=== PATIENT | male | born 1960 | race Caucasian/White ===

== ENCOUNTER 2016-09-20 15:26 | Emergency (ER) | payer OTHER, MEDICAID ==
[2016-09-20 15:34] VITALS: RESP 18; O2SAT 96
--- NOTE | 2016-09-20 16:23 | EDPHY ---
H & P Stated Complaint: l INDEX FINGER LAC W/ KITCHEN KNIFE Source: Patient Exam Limitations: No limitations - Personal History Current Tetanus/Diphtheria Vaccine: Yes Current Tetanus Diphtheria and Acellular Pertussis (TDAP): Yes Tetanus Vaccine Date: /2011 - Medical/Surgical History Hx Asthma: No Hx Chronic Respiratory Disease: No Hx Diabetes: No Hx Cardiac Disease: No Hx Renal Disease: No Hx Cirrhosis: No Hx Alcoholism: Yes Hx HIV/AIDS: Yes Hx Splenectomy or Spleen Trauma: No Other PMH: PSH: R HAND; ABD; T&A. PMH: HIV - Social History Smoking Status: Former smoker HPI/ROS: CHIEF COMPLAINT: Finger tip laceration HISTORY OF PRESENT ILLNESS: cooking when he accidentally cut the left index finger tip within the past 2 hours. Moderate bleeding noted. Distal lateral to the nail bed. Some numbness of the area. No motor changes. No pulsatile bleeding that he describes. No injuries elsewhere. Tetanus was last updated 5 years ago. mild pain that is worse with palpation or movement. Improved with rest. Does not radiate. No other associated complaints or modifying factors. No bleeding disorders or anticoagulants PRIOR ORTHO INJURIES: hand laceration remotely 2011 ESTABLISHED ORTHOPEDIST: none REVIEW OF SYSTEMS: Ten systems reviewed and are negative unless otherwise noted in the HPI EXAMINATION General Appearance: Alert, no distress Head: normocephalic, atraumatic Eyes: Pupils equal and round, no conjunctival pallor or injection Neck: Normal inspection Respiratory: No dyspnea or retractions. No distress Cardiovascular: Pulses normal throughout. Brisk cap refill in all 10 fingers Neurological: A&O, sensory symmetric, strength symmetric Skin: Warm and dry. Laceration as noted below. Extremities: Tenderness to palpation of the left index finger tip. Full flexion-extension noted. Sensory intact with some paresthesias to the finger tip. Range of motion is fully intact. Laceration is approximately 1 cm over the lateral aspect of the left index finger. No involvement of the nail and nail bed. Psychiatric: Mood and affect normal MDM: 4:15 p.m. Finger tip laceration. Tetanus status is up-to-date. No involvement of the nail bed. The wound has been blocked at this time. We will irrigate and close the wound. 4:50 p.m. finger tip laceration that has been closed without complication. Good approximation. Wound care as discussed. Return to the ER in 7-10 days for suture removal. Return sooner for signs of infection as discussed. Neurovascular intact post procedure PROCEDURE: Digital Block Consent: Verbal Location: Left index finger Anesthesia: Lidocaine 1% plain, 0.25% Marcaine plain, 5mL Description: base of the left index finger was cleaned with chlorhexidine. 5 mL of anesthesia as listed above or infused on bilateral aspects of the proximal phalanx. There was good anesthesia. No hematoma. No complications and he tolerated the procedure well. Complications: None PROCEDURE: Laceration repair Consent: Verbal Location: Left index finger Length of repair: 1.25 cm Complexity: simple Layer involvement: single Anesthesia: digital block as above Irrigation: Extensive Debridement: none Procedure description: after good anesthesia and irrigation the wound was explored. No foreign body noted. There is a curvilinear 1.25 cm laceration. Good wound approximation with 4, simple interrupted sutures. Hemostasis noted. No complications. Tolerated well. Suture/Staple material: 5-0 Ethilon Wound care: Routine as discussed Suture/Staple removal: 7-10 Days ED Precautions: Worsening pain. Erythema, edema, cyanosis, pallor, paresthesia or anesthesia. SUPERVISION:This patient was independently evaluated without the aide of supervising physician. (Duncan Antonio) Constitutional: Initial Vital Signs Temperature (C) 36.8 C 09/20/16 15:31 Heart Rate 74 09/20/16 15:31 Respiratory Rate 18 09/20/16 15:31 Blood Pressure 114/75 09/20/16 15:31 O2 Sat (%) 96 09/20/16 15:31 O2 Delivery Mode Room Air Allergies/Adverse Reactions: Penicillins Allergy (Verified 09/20/16 15:30) OPIATES Allergy (Uncoded 11/02/10 17:42) Home Medications: Medication Instructions Recorded EPIVIR 11/02/10 VIRAMUNE 11/02/10 Viriad 11/02/10 Medical Decision Making ED Course/Re-evaluation: I did not see this patient while he was in the emergency department. However his care was discussed with the PA while the patient was in the department. I agree with treatment plan and management (Erwin Walsh) Departure - Departure Disposition: Home, Routine, Self-Care Clinical Impression: Injury of tip of finger of left hand, Laceration Condition: Good Instructions: Care For Your Stitches (ED), Laceration (ED) Additional Instructions: Follow-up with primary care physician for ongoing care if needed. Return to ER for worsening pain, signs of infection as discussed. Also return here in 7-10 days for suture removal if needed and unable to see primary care Referrals: Brooklyn Cortes MD [Primary Care Provider] - As per Instructions
[2016-09-20 17:06] VITALS: BP 111/72; PULSE 62; TEMP 98.4
== END 2016-09-20 17:25 | disposition home or self-care (01) ==
PROC: 0HQGXZZ Repair Left Hand Skin, External Approach (ICD-10-PCS; principal; 2016-09-20)
DX: S61.211A Laceration without foreign body of left index finger without damage to nail, initial encounter (principal); B20 Human immunodeficiency virus [HIV] disease; Z87.891 Personal history of nicotine dependence; W26.9XXA Contact with unspecified sharp object(s), initial encounter; Y93.G3 Activity, cooking and baking

== ENCOUNTER 2018-04-12 14:16 | Emergency (ER) | payer OTHER, MEDICAID ==
[2018-04-12 16:39] LABS: PLATELET COUNT 117 10^3/uL (150-400)
--- NOTE | 2018-04-12 16:39 | EDPHY ---
H & P Smoking Status: Former smoker Time Seen by Provider: 04/12/18 15:06 HPI/ROS: CHIEF COMPLAINT: Headache, rash HISTORY OF PRESENT ILLNESS: 57-year-old male presents to the emergency department with a headache and diffuse rash. Symptoms began 36 hr ago. He states that he initially noted some sores in his mouth and then over the last several hours he has noticed more of a pruritic rash over his trunk, abdomen and upper back especially. He describes it is very itchy but then when they open up they are more painful. No known fevers or chills. No recent travel. No known ill contacts. He states he has never had varicella in the past and his friend thought that this could be varicella. He has never had the varicella vaccine. He has a history of HIV positive however does not have a detectable viral load. He is followed by Dr. Brooklyn Cortes. He denies pain in his chest or difficulty breathing. No cough. No rhinorrhea. No prodrome will illness. No vomiting or diarrhea. REVIEW OF SYSTEMS: Constitutional: No fever, no chills. Eyes: No double or blurry vision. ENT: No sore throat. Respiratory: No cough, no shortness of breath. Cardiac: No chest pain. Gastrointestinal: No abdominal pain, vomiting or diarrhea. Genitourinary: No dysuria. Musculoskeletal: No neck or back pain. Skin: Rash as above Neurological: headache. (Bharati Cheng) Past Medical/Surgical History: HIV positive, tonsillectomy (Bharati Cheng) Social History: Single (Bharati Cheng) Physical Exam: General Appearance: Alert, no distress. Eyes: Pupils equal and round. Extraocular motions are all intact. ENT: Mouth: Mucous membranes moist. Ulcerative lesion noted to the gingival mucosa both on the right upper and right lower gum. No posterior pharyngeal injection noted. No exudate. Respiratory: No wheezing, rhonchi, or rales, lungs are clear to auscultation. Cardiovascular: Regular rate and rhythm. Gastrointestinal: Abdomen is soft and nontender, no masses, no rebound or guarding, bowel sounds normal. Neurological: Alert and oriented x 3, cranial nerves II through XII grossly intact Skin: Skin is warm and dry. He has diffuse erythematous papular rash with some appearing more vesicular to his face, scalp, he chest and abdomen and upper back.. No pustules. Blanches to the touch. Musculoskeletal: Nontender to palpate along the cervical, thoracic or lumbar spine. Neck is supple. Extremities: Full range of motion and no peripheral edema. Psychiatric: Patient is oriented X 3, there is no agitation. (Bharati Cheng) Constitutional: Initial Vital Signs Temperature (C) 37.6 C 04/12/18 14:23 Heart Rate 108 H 04/12/18 14:23 Respiratory Rate 18 04/12/18 14:23 Blood Pressure 135/85 H 04/12/18 14:23 O2 Sat (%) 94 04/12/18 14:23 O2 Delivery Mode Room Air Allergies/Adverse Reactions: Penicillins Allergy (Verified 04/12/18 14:21) OPIATES Allergy (Uncoded 11/02/10 17:42) Home Medications: Medication Instructions Recorded Nevirapine 04/12/18 Tenofovir Alafenamide Fumarate 04/12/18 Valacyclovir HCl [Valtrex] 1,000 mg PO TID #21 tab 04/12/18 Vemlidy 04/12/18 Medical Decision Making ED Course/Re-evaluation: The case was discussed with Dr. Eric Louise, secondary supervising physician, who also evaluated the patient. He recommended consulting Infectious Disease. Dr. Marsha Moffett who was in the emergency department evaluated the patient as well and feels that his rash is likely varicella in nature. Laboratory studies have been ordered. Swab of the rash that was opened by Dr. Marsha Moffett was sent to the lab for evaluation. Patient will be started on valacyclovir 1000 mg three times daily for 1 week. He will follow up with his infectious disease doctor this week to recheck. The patient feels comfortable being discharged home. He was instructed to return to the emergency department if he had any change in symptoms or felt worse. (Bharati Cheng) Differential Diagnosis: Including but not limited to varicella, Pneumocystis, zoster, cellulitis, meningitis, sepsis (Bharati Cheng) Other Provider: 1530: I examined this patient at the request of BRIAN Malik. On exam he has a scattered, papular rash that is primarily in the trunk. He is also complaining of a headache associated with the rash. He denies starting or changing medications. He denies exposure to new detergents or soaps. I recommend consulting with Dr. Moffett, infectious disease, to further evaluate this patient. (Eric Louise) - Data Points Laboratory Results: Laboratory Results 04/12/18 15:28 04/12/18 15:28 04/12/18 04/12/18 04/12/18 15:28 15:28 15:28 WBC 3.17 10^3/uL L 10^3/uL (3.80-9.50) RBC 4.51 10^6/uL 10^6/uL (4.40-6.38) Hgb 15.8 g/dL g/dL (13.7-17.5) Hct 43.4 % % (40.0-51.0) MCV 96.2 fL fL (81.5-99.8) MCH 35.0 pg H pg (27.9-34.1) MCHC 36.4 g/dL g/dL (32.4-36.7) RDW 11.9 % % (11.5-15.2) Plt Count 117 10^3/uL L 10^3/uL (150-400) MPV 9.6 fL fL (8.7-11.7) Neut % (Auto) 50.2 % % (39.3-74.2) Lymph % (Auto) 34.4 % % (15.0-45.0) Granite % (Auto) 13.9 % H % (4.5-13.0) Eos % (Auto) 0.3 % L % (0.6-7.6) Baso % (Auto) 0.9 % % (0.3-1.7) Nucleat RBC Rel Count 0.0 % % (0.0-0.2) Absolute Neuts (auto) 1.59 10^3/uL L 10^3/uL (1.70-6.50) Absolute Lymphs (auto) 1.09 10^3/uL 10^3/uL (1.00-3.00) Absolute Monos (auto) 0.44 10^3/uL 10^3/uL (0.30-0.80) Absolute Eos (auto) 0.01 10^3/uL L 10^3/uL (0.03-0.40) Absolute Basos (auto) 0.03 10^3/uL 10^3/uL (0.02-0.10) Absolute Nucleated RBC 0.00 10^3/uL 10^3/uL (0-0.01) Immature Gran % 0.3 % % (0.0-1.1) Immature Gran # 0.01 10^3/uL 10^3/uL (0.00-0.10) Platelet Estimate Pending Sodium 141 mEq/L mEq/L (135-145) Potassium 4.2 mEq/L mEq/L (3.3-5.0) Chloride 105 mEq/L mEq/L (97-110) Carbon Dioxide 26 mEq/l mEq/l (22-31) Anion Gap 10 mEq/L mEq/L (8-16) BUN 12 mg/dL mg/dL (7-23) Creatinine 1.1 mg/dL mg/dL (0.7-1.3) Estimated GFR > 60 Glucose 82 mg/dL mg/dL (70-100) Calcium 9.3 mg/dL mg/dL (8.5-10.4) Total Bilirubin 0.3 mg/dL mg/dL (0.1-1.4) AST 56 IU/L IU/L (17-59) ALT 41 IU/L IU/L (21-72) Alkaline Phosphatase 91 IU/L IU/L (38-126) Total Protein 7.0 g/dL g/dL (6.3-8.2) Albumin 4.5 g/dL g/dL (3.5-5.0) Syphilis IgG/IgM Ab Pending VZV IgG Antibody VZV IgG Ab Index VZV IgG,IgM Antibody 04/12/18 15:28 WBC RBC Hgb Hct MCV MCH MCHC RDW Plt Count MPV Neut % (Auto) Lymph % (Auto) Granite % (Auto) Eos % (Auto) Baso % (Auto) Nucleat RBC Rel Count Absolute Neuts (auto) Absolute Lymphs (auto) Absolute Monos (auto) Absolute Eos (auto) Absolute Basos (auto) Absolute Nucleated RBC Immature Gran % Immature Gran # Platelet Estimate Sodium Potassium Chloride Carbon Dioxide Anion Gap BUN Creatinine Estimated GFR Glucose Calcium Total Bilirubin AST ALT Alkaline Phosphatase Total Protein Albumin Syphilis IgG/IgM Ab VZV IgG Antibody Pending VZV IgG Ab Index Pending VZV IgG,IgM Antibody Pending Departure - Departure Disposition: Home, Routine, Self-Care Clinical Impression: Pruritic rash Headache Qualifiers: Headache type: unspecified Headache chronicity pattern: acute headache Intractability: not intractable Qualified Code(s): R51 - Headache Condition: Good Instructions: Acute Headache (ED), Acute Rash (ED) Additional Instructions: Benadryl 50 mg every 6 hr as needed for symptoms of itching. You may also use a meal bath as discussed with Dr. Marsha Moffett. Valtrex 1000 mg three times daily for 1 week. Please return to the emergency department if you develop fever, worsening headache, vomiting, altered mental status, or if you feel worse in any way. Referrals: Brooklyn Cortes MD [Primary Care Provider] - 2-3 days without fail Prescriptions: Valacyclovir HCl [Valtrex] 1,000 mg PO TID #21 tab
[2018-04-12 17:05] VITALS: BP 103/83
--- NOTE | 2018-04-12 17:37 | GCON ---
[f rep st] CONSULTATION INFECTIOUS DISEASE CONSULTATION REFERRING PHYSICIAN: BRIAN De Leon REASON FOR CONSULTATION: Fever and rash. HISTORY OF PRESENT ILLNESS: This is a 57-year-old male, well-known to the [facility] with longstanding HIV x30 years that is well controlled. The patient has a known CD4 cell count of 655, and last viral load in March was undetectable, which has been longstanding. He is maintained on viramune, Epivir , and TAF. The patient was in his usual state of health until the last couple of days, when he developed malaise, headache, and a rash. This rash is diffuse. He describes first noticing some ulcerations in his mouth, but then he developed ulcerations over his trunk, arms, and legs. He has a mild associated headache with no respiratory symptoms or sore throat. He has no neck stiffness or light sensitivity. The patient does describe some eye irritation, which he attributes to current smoke in the [place] area. Of note, patient does not recall having chickenpox previously and recently his primary care doctor has measured his varicella titers in October and in March of 2018, which have been negative. He has not received the varicella vaccination as of yet. The patient denies any sick contacts. He does not eat out and denies contact with children. He was last sexually active 3 months ago, has no genital symptoms other than the rash progressing in that area in the suprapubic region. He denies any GI symptoms. PAST MEDICAL HISTORY: HIV diagnosed in 1984, hepatitis A, hepatitis B, and vitamin B12 deficiency. PAST SURGICAL HISTORY: No past surgical history. SOCIAL HISTORY: The patient is a former tobacco user. He exercises. FAMILY HISTORY: Reviewed and noncontributory. VACCINATIONS: He is up-to-date on vaccinations. He has not received the varicella vaccination, although he has been prescribed a prescription. ALLERGIES: Penicillin and tetracyclines. MEDICATIONS: EpiPen for anaphylaxis, Nevirapine 200 mg daily, Viread 300 mg daily, Vemlidy 25 mg daily. REVIEW OF SYSTEMS: A complete 10-point review of systems was performed and is negative except as mentioned in HPI. PHYSICAL EXAM: VITAL SIGNS: Blood pressure 135/85, heart rate is 108, respiratory rate 18, saturation 94% on room air, temperature 37.6. GENERAL: This is a very pleasant, upbeat male sitting in bed. He is mildly diaphoretic. HEENT: He has 2 ulcerations on his inner gumline and upper gumline. He has mild conjunctival suffusion. His extraocular muscles were intact. NECK: His neck was supple. He was able to touch his chin to his chest. No meningismus CARDIOVASCULAR: Mildly tachycardic. No murmur. CHEST: Clear to auscultation bilaterally. ABDOMEN: Soft, nontender. His liver and spleen were nonpalpable. EXTREMITIES: No joint swelling. SKIN: Patient had a diffuse maculopapular eruption with some lesions having a vesicular appearance. As mentioned in HPI, the rash was highly pruritic. NEURO: Moving all 4 extremities equally, fluent speech, grossly cranial nerve normal limits LABORATORY: VZV IgG and IgM were sent from the ER. Syphilis serologies were sent and one of the lesions was personally unroofed by me and swab was taken for VZV PCR. Creatinine in the emergency room was 1.1 and LFTs were within normal limits. CBC is pending. IMPRESSION: 57-year-old male with well-controlled human immunodeficiency virus with a high CD4 and hepatitis B, who presents to the emergency room with a febrile illness with headache and highly pruritic rash with several spots that do appear somewhat vesicular. No clear signs of meningismus, O2 sat is normal and minimal respiratory symptoms. Although this seems somewhat ironic due to recent VZV serologic testing, but I do feel there is some concern for chickenpox. Also, other possibilities discussed with patient would be a nonspecific viral illness with viral eruption and/or allergic reaction to an unknown food. Notably, patient has not started any new recent medicines. Would recommend treatment for chickenpox with Valtrex 1 g p.o. t.i.d. x2 weeks with followup in ID Clinic to assess follow-up on testing and discontinue the therapy if this testing is negative. Recommended that patient use oatmeal baths to relieve itching as well as Benadryl. Thank you for this consultation. We will follow up in ID clinic. /[id number]/MODL MTDD
== END 2018-04-12 17:06 | disposition home or self-care (01) ==
DX: R51 Headache (principal); R21 Rash and other nonspecific skin eruption; Z21 Asymptomatic human immunodeficiency virus [HIV] infection status
CPT/HCPCS: 86644-90; 86645-90; 86664-90; 86665-90; 86787-90; 87798-90

== ENCOUNTER 2018-04-14 10:19 | Inpatient (IN) | payer OTHER, MEDICAID ==
--- NOTE | 2018-04-14 10:54 | EDPHY ---
HPI/HX/ROS/PE/MDM Narrative: CHIEF COMPLAINT: Rash, positive VZV, HIV positive patient, HISTORY OF PRESENT ILLNESS: This is a 57-year-old male, HIV positive with viral load less than 1 and normal T cells, who was seen in the emergency department 4 days ago for rash. At that time the patient had a vesicle lanced and the VZV DNA is positive. Patient had been started on valacyclovir at the time of his emergency department visit, but his rash has been worsening. Patient reports pain with swallowing and does state that he had discomfort in his throat an oral lesions when he was seen previously. Patient is now also complaining of a headache, some neck stiffness, some shortness of breath, no cough, and significantly worse rash. Dr. Nicholson shows the patient's primary infectious disease physician. She did contact me prior to the patient's arrival and recommended that the patient be started on IV acyclovir. Patient was evaluated by Dr. Best immediately on arrival to the emergency department. Laboratory evaluation was started by Dr. Cortes and IV acyclovir ordered. No fever, chills, chest pain, shortness of breath, palpitations, vomiting, diarrhea, urinary complaints, headache, lightheadedness. REVIEW OF SYSTEMS: A comprehensive 10 system review of systems was reviewed and is otherwise negative aside from elements mentioned in the history of present illness. PAST MEDICAL HISTORY: HIV positive, varicella lesions, SOCIAL HISTORY: Former smoker. Single. VITAL SIGNS Reviewed by me. Complaining of pain in his throat. GENERAL: Well-developed, well-nourished, no increased respiratory effort.. HEENT: Atraumatic. Eyes: No icterus, no injection. Mouth: moist mucous membranes. Patient has vesicular lesions on the gumline as well as on the posterior pharynx. Neck: supple, no meningismus. Negative Kernig's. Negative Brudzinski's. LUNGS: Clear to auscultation bilaterally, no wheezes, rhonchi or rales. CARDIAC: Regular rate and rhythm, no rubs, murmurs or gallops. ABDOMEN: Soft, nontender, nondistended, bowel sounds normal. BACK: No CVA tenderness. EXTREMITIES: No trauma. No edema. Range of motion is normal throughout. NEURO: Alert and oriented, grossly nonfocal. Not encephalopathic. SKIN: Warm and dry, vesicular rash extending from the head to the legs. Most confluent on the trunk. Some of the lesions are crusted. PSYCHIATRIC: Normal mentation, no agitation. ED Course: 57-year-old gentleman HIV positive now presenting with a primary varicella infection. Patient's symptoms are also suggestive of viral meningitis verses viral encephalitis. Chest x-ray was obtained to rule out pneumonia. Discussed potential lumbar puncture with Infectious Disease service. As is will not change the patient is treatment, and he is not encephalopathic, plan at this point is to continue with IV acyclovir. Patient was also given Magic mouthwash to help with the oral lesions. Chest x-ray with no acute findings. Spoke with hospitalist service. Dr. Trevizo accepts admission. MDM: Differential diagnoses for the patient's symptom complex was considered including but not limited to varicella infection, shingles, disseminated shingles, varicella pneumonia, encephalitis, meningitis. - Data Points Imaging: I viewed and interpreted images myself Laboratory Results: Laboratory Results 04/14/18 10:55 04/14/18 10:55 Medications Given: Discontinued Medications Calcium/Vitamin D (Calcium Carb W/Vit D) 500 mg PO DAILY JOSÉ ANTONIO Stop: 10/12/18 08:59 Last Admin: 04/16/18 09:55 Dose: 500 mg Acyclovir 750 mg/ Dextrose 265 mls @ 265 mls/hr IV Q8H JOSÉ ANTONIO Stop: 05/14/18 12:29 Last Admin: 04/16/18 11:45 Dose: Not Given Sodium Chloride (Ns) 1,000 mls @ 0 mls/hr IV ONCE ONE; Wide Open PRN Reason: Protocol Stop: 04/14/18 12:35 Last Admin: 04/14/18 12:46 Dose: 1,000 mls Sodium Chloride (Ns) 1,000 mls @ 100 mls/hr IV CONT JOSÉ ANTONIO Stop: 10/11/18 14:29 Last Admin: 04/15/18 13:57 Dose: 1,000 mls Sodium Chloride (Ns) 500 mls @ 0 mls/hr IV ONCE ONE PRN Reason: Wide Open Stop: 04/15/18 15:44 Last Admin: 04/15/18 17:12 Dose: 500 mls Sodium Chloride (Ns) 500 mls @ 166.667 mls/hr IV Q8H JOSÉ ANTONIO Stop: 10/12/18 19:29 Last Admin: 04/16/18 11:45 Dose: Not Given Lidocaine/Diphenhydramine/Alumin/Mg (Maalox/Diphenhydramine/Lido) 10 ml PO ONCE ONE Stop: 04/14/18 12:35 Last Admin: 04/14/18 13:59 Dose: 10 ml Miscellaneous Medication (Lamivudine [Lamivudine]) 300 mg PO DAILY ON LICENSE OF [facility] Stop: 10/12/18 08:59 Last Admin: 04/16/18 09:56 Dose: 300 mg Miscellaneous Medication (Nevirapine) 400 mg PO DAILY JOSÉ ANTONIO Stop: 10/12/18 08:59 Last Admin: 04/16/18 09:55 Dose: 400 mg Tenofovir Disoproxil Fumarate (Viread) 300 mg PO DAILY ON LICENSE OF [facility] Stop: 10/12/18 08:59 Last Admin: 04/16/18 09:56 Dose: 300 mg General Time Seen by Provider: 04/14/18 10:34 Initial Vital Signs: Initial Vital Signs Temperature (C) 37 C 04/14/18 10:23 Heart Rate 90 04/14/18 10:23 Respiratory Rate 18 04/14/18 10:23 Blood Pressure 105/69 04/14/18 10:23 O2 Sat (%) 97 04/14/18 10:23 O2 Delivery Mode Room Air Allergies/Adverse Reactions: Penicillins Allergy (Verified 04/14/18 11:48) Anaphylaxis bee stings Allergy (Uncoded 04/14/18 11:48) OPIATES Allergy (Uncoded 04/14/18 11:48) Dyspnea/Itching Home Medications: Medication Instructions Recorded Nevirapine [Viramune 200 mg (*)] 400 mg PO DAILY 04/12/18 Acetaminophen [Tylenol 325mg (*)] 325 mg PO Q6HRS PRN 04/14/18 Azithromycin 250 mg PO DAILY 04/14/18 Calcium Carb W/Vit D [Calcium Carb 500 mg PO DAILY 04/14/18 W/Vit D 500/200 (*)] Multivitamins [Multivitamin (*)] 1 each PO DAILY 04/14/18 Tenofovir Disoproxil Fumarate 300 mg PO DAILY 04/14/18 [Viread 300 MG (*)] diphenhydrAMINE [Benadryl 25 MG 25 mg PO DAILY PRN 04/14/18 (*)] lamiVUDine [Lamivudine] 300 mg PO DAILY 04/14/18 Departure - Departure Disposition: [facility] Inpatient Acute Clinical Impression: Rash Varicella Qualifiers: Varicella complications: unspecified complication Qualified Code(s): B01.89 - Other varicella complications Condition: Fair
[2018-04-14 11:13] LABS: PLATELET COUNT 112 10^3/uL (150-400)
--- NOTE | 2018-04-14 12:14 | GCON ---
[f rep st] CONSULTATION MTDD
--- NOTE | 2018-04-14 12:24 | GCON ---
[f rep st] CONSULTATION INFECTIOUS DISEASE CONSULT. REFERRING PHYSICIAN: Micah Perez MD REASON FOR CONSULT: To assist in the management of my primary care patient, who is being admitted for primary varicella. HISTORY OF PRESENT ILLNESS: The patient is a 57-year-old male whose previous medical history is notable for the followin. Longstanding HIV: The patient was diagnosed in the mid 80s. He has been quite stable on antiretroviral therapy. Most recent viral load was less than 1 last week, with a T-cell count of 655 in September 2017. He has had no significant HIV-related complications, per se. His antiretroviral regimen consists of nevirapine, 3TC, and TAF, which he has been on for the past several years, with the exception of TAF, which was recently changed from TDF. 2. Microscopic hematuria: The patient's urinalysis recently revealed microscopic hematuria. This was verified on 2 separate occasions. No history of nephrolithiasis. The patient will need a workup for this moving forward. 3. History of hepatitis A. 4. History of hepatitis B, with natural immunity. He does not have chronic disease. 5. Vitamin B12 deficiency. Regarding his present issues, I saw the patient in clinic literally last week, at which point we had a conversation about a negative varicella IgG that had been done in October. Because the patient was born in 1960, I had wondered at that time if this was a false negative. The plan at that time was for the patient to have a conversation with his mother to ascertain whether or not he had been exposed or had the disease, and that we would repeat the serology and vaccinate if needed. When I saw the patient last week, he told me that he had a conversation with his mother, and his mother could not recall him being exposed to chickenpox. His mother reported that his siblings had chickenpox when he was still in utero. The VZV IgG was repeated, and verified to be negative. During that visit, we had talked about having him get the primary varicella vaccine if the repeat serology was indeed negative. He was given a prescription for the primary varicella vaccine, which we did not store in our clinic. Incredibly, the patient states that he developed the onset of a vesicular rash this past Saturday. He presented to [facility] on Saturday, and 1 of the lesions was unroofed, and is positive for VZV DNA. He was seen by my colleague, Dr. Lorena Moffett, who was concerned about this entity, and empirically started him on valacyclovir 1 g p.o. t.i.d. The patient states he has taken approximately 5 doses. Of note, the patient's vital signs in the emergency room were notable for temperature of 37.6, and oxygen saturation 94% on room air. He had no evidence of hepatitis with normal transaminases; his white blood cell count was 3.1 with a platelet count of a 117 , consistent with a viral etiology. VZV serologies were also ordered, and a syphilis serology was negative. CMV and EBV serologies were also ordered. No imaging tests were obtained. The patient was discharged from the emergency room , and told to follow up with me. I called the patient this morning to check in, given the fact that the VZV DNA came back positive in 1 of the lesions; explained to the patient that he has primary varicella, and that it would be best for him to come in to the hospital for him to receive intravenous acyclovir to ensure that he does not develop complications, such as varicella pneumonia. The patient on the phone, complained of a headache, but no confusion, no visual disturbance, and no cough. I instructed him to come to [facility] Emergency Room. I saw the patient in the emergency room. He was clearly covered in VZV lesions , but did not look toxic. Again, the patient complained of a headache, but did not have any visual change whatsoever, no cough. He reported mild shortness of breath, but the patient was speaking in full sentences, and had an oxygen saturation of 97% on room air. No nausea, vomiting, sore throat, abdominal pain , dysuria, diarrhea, or changes in his bowel movements, focal weakness, or confusion. Aside from what is listed above, 10 systems are reviewed, and all are negative. PREVIOUS MEDICAL HISTORY: As outlined above. ALLERGIES: Penicillin: I forgot to ask the patient his reaction to penicillin. We will try to ascertain this moving forward, tetracyclines, reaction also unknown, and not clarified by me. He also had an unclear reaction in the past to FTC or Emtricitabine (possibly pancreatitis 14 years ago ) MEDICATIONS: 1. Valacyclovir 1 g p.o. t.i.d., of which he has taken 5 doses. 2. The patient told me that he took 1 g of azithromycin this morning (the patient had been given a Z-John to take with him on an upcoming trip to [place] for traveler's diarrhea). The patient states he took 1 g of it this morning out of concern for an "infected" mouth lesion. 3. TAF, which is Vemlidy 25 mg p.o. daily 4. nevirapine 200 mg tablet 2 tabs p.o. daily. 5. 3TC, or epivir 300 mg p.o. daily. 6. Multivitamins. SOCIAL HISTORY: The patient is single, and has no pets. He works in construction. Distant history of tobacco. No illicit substances. No recent travel in the past 6 months. FAMILY HISTORY: Noncontributory. PHYSICAL EXAM: VITAL SIGNS: T-current 37, heart rate 90, blood pressure 105/69 , 97% on room air. GENERAL: Lying on the gurney, nontoxic, no apparent distress. HEENT: Atraumatic, normocephalic. Pupils equal, round, reactive to light. Extraocular movements are intact. No conjunctival injection, icterus, or petechiae. No discharge from the nares, or sinus process tenderness. NECK: Supple, with full range of motion. No cervical or supraclavicular lymphadenopathy. Trachea is midline, with no thyromegaly, or palpable thyroid nodules. CARDIOVASCULAR: S1, S2. No rubs, gallops, or murmurs. LUNGS: No increased respiratory effort. Difficult to hear lung sounds secondary to poor quality of stethoscope, but clear to my auscultation. No rubs or wheeze, or rhonchi. ABDOMEN: Soft. No organomegaly or tenderness to palpation. EXAM : Circumcised phallus. No obvious abnormalities, other than his skin, which I will describe below. EXTREMITIES: No clubbing, cyanosis, or edema. NEUROLOGIC EXAM: He is alert and oriented x3. Sensation intact to light touch. No focal deficits at all. He is moving all 4 extremities. SKIN: The patient is covered from head-to-toe with vesicular lesions in various stages of evolution, consistent with varicella zoster. There is no evidence of secondary bacterial infection. The patient only has 1 small lesion in his lower gums in his mouth that I can see. His eyes are not injected, and otherwise look fine. RADIOGRAPHIC DATA: Chest x-ray is pending. IMPRESSION: 57-year-old male with well-controlled human immunodeficiency virus admitted with primary varicella. He does have a mild headache consistent with possible aseptic meningitis, but has nothing on exam to intimate an encephalitis, ocular involvement, pneumonia, and no evidence [facility] of varicella hepatitis. There is no evidence of secondary bacterial infection, either. At this point in time, I do not feel he needs a lumbar puncture. PLAN: 1. Discontinue valacyclovir. Start acyclovir 10 mg/kg q.8 hours intravenously. He will likely need this for a few days, at which point can transition back to oral valacyclovir. Will need to be well hydrated well on intravenous acyclovir to prevent azotemia. 2. The patient will need a chest x-ray, PA and lateral, to look for evidence of pneumonia in the setting of his complaint of shortness of breath, although his oxygen saturation is normal, and exam does not suggest pulmonary involvement. 3. He will need contact isolation, and negative airflow room. 4. He was counseled to avoid scratching to prevent secondary bacterial infection. For this, he can use calamine lotion, and Benadryl if needed. 5. If the oral lesion continues to be a problem, he can use Magic mouthwash. Instructed him to not take it anymore azithromycin for this, as there is no evidence of a bacterial secondary infection (and azithromycin would not be the right choice regardless) 6. For his HIV, continue nevirapine, 3TC, and TAF. The patient has brought his medicines from home. 7. Incidentally, the patient also continues to have microscopic hematuria of unclear etiology. While he is here, we will obtain a renal ultrasound (I will order this tomorrow), and urine cytology. Thank you very much for consulting Infectious Diseases. I will continue to follow this patient with you. /[id number]/MODL MTDD
[2018-04-14] MEDS ORDERED: MBX SOLN 30 ML BOTTLE PO ONE (12:34)
[2018-04-14] MEDS ORDERED: NS 1,000 ML IV ONE (12:34)
[2018-04-14] MEDS: ACYCLOVIR 750 MG in D5W 250 ML IV SCH ×2 (12:47→20:26)
[2018-04-14] MEDS ORDERED: diphenhydrAMINE 25 MG CAP PO PRN (14:19)
[2018-04-14] MEDS ORDERED: ACETAMINOPHEN 325 MG TAB PO PRN (14:20)
[2018-04-14] MEDS ORDERED: ONDANSETRON 4 MG/2 ML VIAL IVP PRN (14:20)
[2018-04-14] MEDS ORDERED: NS 1,000 ML IV SCH (14:30)
[2018-04-14] MEDS ORDERED: traMADol 50 MG TAB PO PRN (16:53)
[2018-04-14] MEDS ORDERED: HYDROmorphONE/DILAUDID 1 MG/ML INJ IVP PRN (16:53)
[2018-04-14] MEDS ORDERED: oxyCODONE IR 5 MG TAB PO PRN (16:53)
--- NOTE | 2018-04-14 17:27 | GHP ---
[f rep st] HISTORY AND PHYSICAL DATE OF ADMISSION: 04/14/2018 CHIEF COMPLAINT: Rash. HISTORY OF PRESENT ILLNESS: Shay is a 57-year-old, HIV-positive male, well controlled on anti-retr oviral therapy. He is known to be negative VZV IgG, and was about to get the vaccine as an outpatien t when suddenly 4 days ago he developed a vesicular rash. He was seen in the emergency room on . One of the blisters was lanced and his VZV DNA was positive. He was started empirically on darian acyclovir 1 g p.o. three times daily on Saturday, but despite this therapy his rash has worsened, now covering his entire body as well as his oral mucosa, and he can feel it all the way down the back of his throat. He has some pain with swallowing. He also has a headache which is quite significant, w ith some mild neck stiffness. There has been some shortness of breath, but no cough. He thinks his shortness of breath is due to the dryness that he feels due to the lesions in the back of his throat. Dr. Cortes saw him in the emergency room and prescribed IV acyclovir. PAST MEDICAL HISTORY: 1. HIV diagnosed in the mid 1980s. Last viral load less than 1 and his T-cells are 655. 2. Hepatitis A. 3. Hepatitis B with natural immunity. No evidence of chronic disease. 4. B12 deficiency. 5. Microscopic hematuria. MEDICATIONS: Please see computer record for full detailed list. ALLERGIES: Penicillin. SOCIAL HISTORY: Distant smoking. No alcohol. He is single, lives alone. Works in construction. L ast travel was to [facility] in January. REVIEW OF SYSTEMS: Complete review of systems obtained. Review of systems negative for constitution al, HEENT, GI, pulmonary, vascular, , hematology, endocrine, psych, except for positives as in HPI. FAMILY HISTORY: Reviewed, noncontributory to presenting complaint. PHYSICAL EXAMINATION: GENERAL: Well-developed, well-nourished male, in no acute distress. Temperat ure 37, pulse 72, blood pressure 123/65, saturating 97% on room air. HEENT: Eyes: Normal conjuncti va. Pupils react to light. ENT: Normal ears and nose. Hearing intact. Oropharynx has lesions silverio ng the gumline, above and below the teeth, some very back of the throat lesions. NECK: Trachea midl ine. No thyromegaly. CHEST: Normal respiratory effort, lungs clear to auscultation bilaterally. C ARDIOVASCULAR: Regular rhythm. No murmur. No lower extremity edema. ABDOMEN: Soft, nontender. N o hepatosplenomegaly. Skin: He has vesicular lesions over his entire body. Some of them are weepin g. MUSCULOSKELETAL: No cyanosis, clubbing. Strength 5/5 upper and lower extremities. NEUROLOGIC: Cranial nerves intact with normal sensation to light touch. PSYCHIATRIC: Alert and oriented x3. N ormal mood and affect. Normal judgment, normal memory. LABORATORY DATA: White count 6.05, hematocrit 43.0, platelets 112. Sodium 138, potassium 4.6, chlor dale 105, bicarb 24, BUN 17, creatinine 1.1. Glucose 83. LFTs are negative, Chest x-ray is negative. This case was personally discussed with Dr. Cortes regarding treatment plan. ASSESSMENT AND PLAN: 1. Primary varicella: Continue IV acyclovir per ID. Normal saline hydration while he is on acyclov ir. The patient's clinical course will be monitored per Infectious Disease. Once he shows clinical improvement, can be switched back to oral valacyclovir to complete a course post discharge. 2. Human immunodeficiency virus positive with undetectable viral load: Well controlled on a 3-drug regimen. These will be continued during this hospitalization. 3. Headache: He may have an element of varicella-zoster virus meningitis. There is no evidence of encephalitis. I do not think this would change therapy, so at this point Infectious Disease does not think we need to proceed with lumbar puncture. Continue IV acyclovir. 4. Microscopic hematuria: Dr. Cortes has ordered a renal ultrasound. CODE STATUS: Full. ADMISSION STATUS: Will admit to inpatient, as I anticipate at least 48 hours of IV therapy prior to discharge home. DVT PROPHYLAXIS: He is low risk. /[id number]/MODL
[2018-04-15] MEDS: ACYCLOVIR 750 MG in D5W 250 ML IV SCH ×3 (05:14→20:43)
[2018-04-15] MEDS: CALCIUM CARB W/VIT D 500 MG TAB PO SCH (09:20)
[2018-04-15] MEDS: Lamivudine [Lamivudine] 300 MG PO SCH (09:20)
[2018-04-15] MEDS: NEVIRAPINE 200 MG PO SCH (09:21)
[2018-04-15] MEDS: TENOFOVIR DISOPROXIL FUMARATE 300 MG TAB PO SCH (09:22)
--- NOTE | 2018-04-15 09:23 | PCMIDPN ---
Assessment/Plan: 1. Chickenpox: Lesions are starting to crust over, but some remain pustular. No evidence of pneumonia, encephalitis, hepatitis or secondary bacterial infection. Will continue acyclovir intravenously for another day, and if he remains stable, discharge tomorrow to complete therapy with oral Valacyclovir. Check creatinine this morning on IV acyclovir. Sincerely appreciate hospitalist assistance! 2. HIV: Continue antiretrovirals. 3. Microscopic hematuria: Renal ultrasound today. Urine cytology pending. Repeat urine with 1+ blood but no red cells. Will add urine myoglobin. Over 25 min spent with this patient today. Subjective: In good spirits. No complaints except for mild headache. No stiff neck or confusion. No shortness of breath. Feels that his myalgias are improving. Objective: TAF 25 mg daily 3TC 300 mg daily NVP 400 mg daily Acyclovir 750 mg IV q.8 hours day 1 No fevers Vital Signs Temp Pulse Resp BP Pulse Ox 36.8 C 81 19 116/74 93 04/15/18 07:45 04/15/18 07:45 04/15/18 07:45 04/15/18 07:45 04/15/18 07:45 04/14/18 04/15/18 04/16/18 05:59 05:59 05:59 Output Total 0 Balance 0 - Physical Exam General Appearance: alert, no apparent distress EENT: pharynx normal, other (A few VZV ulcerations on his gums uppers and lowers , none on buccal mucosa or posterior oropharynx) Respiratory: lungs clear Cardiac/Chest: regular rate, rhythm Abdomen: non-tender, soft Skin: other (Multiple erythematous vesicular pustular lesions from head to toe, some of which are crusting over, none of which appear secondarily infected) Neuro/Psych: no motor/sensory deficits, oriented x 3 ICD10 Worksheet Patient Problems: Problems Problem Status Onset Varicella Acute - ICD10 Problem Qualifiers (1) Varicella
--- NOTE | 2018-04-15 10:45 | PDMN ---
Medical Necessity Medical necessity: MCG MGSIC Systemic or Infectious Condition GRG: HIV+ 57 y/o w / vesicular rash, dx primary varicella virus, possible varicella zoster virus meningitis. ID consult. Renal U/S pending to eval microscopic hematuria. Cont IV acyclovir. Contact isolation. Admit to IP per MD - anticipate at least 48 hours for IV tx prior to d/c home.
--- NOTE | 2018-04-15 11:00 | ASMTCMCOM ---
CM Note CM Note Notes: Patient admitted with a vesicular rash. HIV +, followed at [place]. Diagnosis primary varicella virus, being treated with IV acyclovir. He is normally independent, employed, lives alone. No discharge needs anticipated. Date Signed: 04/15/2018 10:59 AM Electronically Signed By:Janneth Sheppard RN
[2018-04-15] MEDS ORDERED: NS 500 ML IV ONE ×2 (15:43→17:56)
--- NOTE | 2018-04-15 18:00 | HOSPPROG ---
Hospitalist Progress Note Assessment/Plan: * Acute VZV infection -IV acyclovir -bolus IVF hydration with each dose * Possible viral meningitis -no indication for LP as would not car changer -headache and neck stiffness slowly improving * HIV + -undetectable viral load, CD4 655 * Microscopic hematuria -renal US negative Subjective: No new complaints, feels better Objective: Vital Signs Temp Pulse Resp BP Pulse Ox 36.7 C 71 19 117/75 96 04/15/18 16:00 04/15/18 16:00 04/15/18 16:00 04/15/18 16:00 04/15/18 16:00 Laboratory Results 04/15/18 10:17 04/14/18 04/15/18 04/16/18 05:59 05:59 05:59 Output Total 9 Balance -9 - Physical Exam Constitutional: no apparent distress, appears nourished, not in pain Cardiovascular: regular rate and rhythym, no murmur, rub, or gallop Respiratory: no respiratory distress, no rales or rhonchi, clear to auscultation Gastrointestinal: normoactive bowel sounds, soft, non-tender abdomen, no palpable masses Skin: warm, rash (lesions crusting over), No induration, No fluctuance Neurologic: AAOx3, sensation intact bilaterally Psychiatric: interacting appropriately, not anxious, not encephalopathic, thought process linear ICD10 Worksheet Patient Problems: Problems Problem Status Onset Varicella Acute
[2018-04-15] MEDS: NS 500 ML IV SCH (19:42)
[2018-04-16] MEDS: NS 500 ML IV SCH ×2 (03:05→11:45)
[2018-04-16] MEDS: ACYCLOVIR 750 MG in D5W 250 ML IV SCH ×2 (04:03→11:45)
[2018-04-16] MEDS: CALCIUM CARB W/VIT D 500 MG TAB PO SCH (09:55)
[2018-04-16] MEDS: NEVIRAPINE 200 MG PO SCH (09:55)
[2018-04-16] MEDS: TENOFOVIR DISOPROXIL FUMARATE 300 MG TAB PO SCH (09:56)
[2018-04-16] MEDS: Lamivudine [Lamivudine] 300 MG PO SCH (09:56)
[2018-04-16 11:59] VITALS: BP 119/80
--- NOTE | 2018-04-16 19:01 | PDDCSUM ---
Discharge Summary Discharge Summary: Date of Admission: 04/14/2018 Date of Discharge: 04/16/2018 Consultants: infectious disease Discharge Diagnoses: 1. Acute VZV infection, possibly with meningeal involvement 2. HIV 3. Microscopic hematuria Brief Hospital Course by Problem: 1. Acute VZV infection: Dramatic improvement with IV acyclovir. Given IVF to prevent renal issues. Discharged to complete course of valacyclovir with ID follow up. 2. Possible VZV meningitis: Manifested by headache and neck stiffness that improved with acyclovir. Did not pursue LP as wouldn't climate change risk assessor. 3. HIV: Chronic issue. Undetectable viral load, CD4 655. Continued anti- retrovirals. 4. Microscopic hematuria: Renal US negative for mass/stone. Urine cytology negative for malignant cells. Recommend repeat UA in future. Medications: Please refer to EMR for complete list. Additions this hospitalization include valacyclovir. Follow Up Plan: 1. ID clinic visit with Dr Cortes 2. Urinalysis in 6-8 weeks to re-assess for hematuria Tests Pending at Discharge: urine myoglobin Physical Exam: Vitals reviewed. Patient alert and oriented. Regular rate without m/r/g on cardiac exam. Lungs clear. Abdomen soft. Skin with significantly improved vesicular lesions over torso, arms, legs, head/neck, and oral mucosa.
== END 2018-04-16 12:20 | disposition home or self-care (01) | DRG 866 ==
LOC: F3E 13:20 → OBSVTOIN 14:21
PROVIDERS: ADMIT Internal Medicine; ATTEND Internal Medicine
DX: B01.0 Varicella meningitis (principal); Z21 Asymptomatic human immunodeficiency virus [HIV] infection status; B15.9 Hepatitis A without hepatic coma; B19.10 Unspecified viral hepatitis B without hepatic coma; E53.8 Deficiency of other specified B group vitamins; R31.29 Other microscopic hematuria
CPT/HCPCS: 96365; J0133